=== PATIENT | female | born 1970 | race Caucasian/White ===

== ENCOUNTER → 2023-07-22 09:24 | Outpatient (REF) | payer BC, SELFPAY | LOC: RAD 09:24 | PROVIDERS: ATTENDING PHYSICIAN Obstetrics & Gynecology; FAMILY PHYSICIAN Nurse Practitioner Adult Health | DX: R10.31 Right lower quadrant pain (principal) | CPT/HCPCS: 72193; Q9967 ==

== ENCOUNTER → 2023-08-30 06:42 | Outpatient (REF) | payer BC, SELFPAY ==
[2023-08-30 09:27] LABS: ALT (SGPT) 10 U/L (0-35); AST (SGOT) 24 U/L (14-36); Albumin 4.6 g/dl (3.5-5.0); Alkaline Phosphatase 52 U/L (38-126); Blood Urea Nitrogen 7 mg/dl (7-17); Calcium 10.1 mg/dl (8.4-10.2); Carbon Dioxide 26 mmol/L (22-30); Chloride 106 mmol/L (98-107); Glucose 88 mg/dl (70-99); HDL Cholesterol 62 mg/dl; LDL Cholesterol, Calculated 108 mg/dl; Potassium 5.3 mmol/L (3.5-5.1); Sodium 140 mmol/L (135-145); Total Bilirubin 0.9 mg/dl (0.2-1.3); Total Cholesterol 185 mg/dl (50-199); Total Protein 7.3 g/dl (6.3-8.2); Triglyceride 79 mg/dl (10-149); Very Low Density Lipoprotein 15 mg/dl (0-30); eGFR > 60.00
[2023-08-31 12:35] LABS: TSH Reflex To Free T4 < 0.02 uIU/ml (0.47-4.68)
[2023-08-31 13:02] LABS: Free T4 1.87 ng/dl (0.78-2.19)
== END ==
LOC: REG 06:42
PROVIDERS: ATTENDING PHYSICIAN Nurse Practitioner Adult Health
DX: E78.00 Pure hypercholesterolemia, unspecified (principal); E03.9 Hypothyroidism, unspecified; R63.5 Abnormal weight gain
CPT/HCPCS: 36415; 80053; 80061; 84439; 84443

== ENCOUNTER → 2023-09-05 14:44 | Outpatient (REF) | payer BC, SELFPAY | LOC: HWRAD 14:44 | PROVIDERS: ATTENDING PHYSICIAN Nurse Practitioner Adult Health | DX: R10.12 Left upper quadrant pain (principal) | CPT/HCPCS: 76700 ==

== ENCOUNTER → 2023-09-17 06:44 | Outpatient (REF) | payer BC, SELFPAY | LOC: MRI 06:44 | PROVIDERS: ATTENDING PHYSICIAN Physician Assistant Medical; FAMILY PHYSICIAN Nurse Practitioner Adult Health | DX: M25.551 Pain in right hip (principal); M54.16 Radiculopathy, lumbar region | CPT/HCPCS: 72148; 72195 ==

== ENCOUNTER → 2024-02-01 07:47 | Outpatient (REF) | payer BC, SELFPAY | LOC: RAD 07:47 | PROVIDERS: ATTENDING PHYSICIAN Nurse Practitioner Adult Health | DX: R10.9 Unspecified abdominal pain (principal); R10.12 Left upper quadrant pain | CPT/HCPCS: 74177; Q9967 ==

== ENCOUNTER 2024-03-01 07:58 | Emergency (ER) | payer SELFPAY ==
[2024-03-01 08:01] VITALS: BP 129/71
--- NOTE | 2024-03-01 08:12 | ED.GENMED ---
History of Present Illness
General
Chief Complaint: Head Injury
Source: patient
Exam Limitations: none
Time Seen by Provider: 03/01/24 08:06
History of Present Illness
History of Present Illness:
See MDM
Past History
Past History
ED Past Medical History: Other (Chronic headaches)
ED Past Surgical History: Cardiac (Atrial septal defect)
Social History
Tobacco: Non-smoker
Alcohol: None
Employment: Employed
Phy Exam
Physical Exam
Physical Exam:
See MDM
Course
Orders/Labs/Results
Orders:
Orders
03/01/24 08:11
CT Head W/o Iv Contrast Urgent
Comment:
Reason For Exam: head injury, headache
Ibuprofen [Motrin] 600 mg PO NOW STA
Vital Signs
Initial and Last Documented VS:
Initial Vital Signs
Temp Pulse Resp BP Pulse Ox
97.9 F 76 16 129/71 98
03/01/24 08:01 03/01/24 08:01 03/01/24 08:01 03/01/24 08:01 03/01/24 08:01
Last Documented Vital Signs
Temp Pulse Resp BP Pulse Ox
97.9 F 76 16 129/71 98
03/01/24 08:01 03/01/24 08:01 03/01/24 08:01 03/01/24 08:01 03/01/24 08:01
MDM/Problems Addressed
Differential Diagnosis Includes:
HPI and MDM Narrative:
53-year-old female presenting with minor head injury. Patient was at work and shelving unit fell from a few feet above her head. It did hit the top part of her head. She did not pass out. No vomiting. She has mild headache
Physical exam
General: Well appearing and non-toxic
HEENT: protecting airway. No trauma noted on exam. Pupils equal reactive. EOMI
Neck: No tenderness, supple
CV: No evidence of cyanosis
Resp: No accessory muscle use
Abd: Non-distended
Extremities: No deformities
Neuro: alert
Psych: Normal affect
Skin: Intact
Problems Addressed including Acute and Chronic Conditions affecting care:
1. Head injury
Acuity: acute
Prognosis: stable
Details: Discussed contusion versus very mild concussion. Will obtain CT head
Updates
CT head negative. We discussed the incidental Chiari I malformation and discussed outpatient follow-up with PCP
Differential Diagnosis (but not limited to): Concussion, contusion, migraine
Testing considered: Neck x-ray but no tenderness noted
Drug therapy (if applicable): OTC meds, please see d/c instruction regarding Rx drugs
Amount and/or Complexity of Data Reviewed
Clinical info obtained from: Patient
External data reviewed: N/A
Labs I independently reviewed (but not limited to): N/A
Radiology: The CT scan was personally and independently reviewed. In addition, official CT report reviewed.
Pulse Ox: not hypoxic
EKG independently reviewed: N/A
Director Commercial Sales: N/A
Critical Care: N/A
Risk of Complication:
Social Determinants of health: Good social support
Discussed with other providers: N/A
Escalation of Care includes Admit/Obs: After being observed in the Emergency Department, pt stable for discharge.
Occasional wrong word or 'sound a like' substitutions may have occurred due to the inherent limitations of voice recognition software. Read the chart carefully and recognize, using context, where substitutions have occurred.
*Critical Care Note
Total Time (30-74mins, 75-104mins- exclusive of procedures): Not Applicable
ED Attending Note
-
Portions of this chart may have been created with voice recognition software.� Occasional wrong word or��sound alike� substitutions may have occurred due to the inherent limitations of voice recognition software.
Discharge Plan
Departure
Patient Disposition: Home (Routine Discharge)
Date of Disposition: 03/01/24
Time of Disposition: 08:59
Patient with high blood pressure during this ER visit?: No
Discharge Problem:
Head injury
Instructions: Minor Head Injury (DC)
Prescriptions:
No Action
rizatriptan 10 MG tablet,disintegrating
10 mg PO ONCE PRN (Reason: headache) Qty: 15 0RF
Rx Instructions:
May repeat the dose every 2 hours �2. Maximum dose of 30 mg
diazepam 5 MG tablet
5 mg PO TIDPRN PRN (Reason: spasm) Qty: 15 0RF
verapamil 120 MG tablet extended release
120 mg PO DAILY Qty: 30 0RF
Referrals:
Tisha Osorio CRNP [Family Provider] -
Activity Restrictions/Additional Instructions:
Please return for any worsening symptoms.
You may return at any time if you have further concerns.
Please follow up with your doctor at the first available appointment, preferably this week.
Interventions
Interventions:
*Risk Screen - Suicide Last Done: 03/01/24 08:01
*Neglect/Abuse Screening Last Done: 03/01/24 08:01
*ED COVID-19 Vaccine History Last Done: 03/01/24 08:08
ED- Neurological Assessment Last Done: 03/01/24 08:08
ED-Skin Assessment Last Done: 03/01/24 08:12
Discharge Date and Time
Print Language: NICARAG[place]
[2024-03-01] MEDS: MOTRIN 600 MG PO (08:15)
== END 2024-03-01 09:09 | disposition home or self-care (01) ==
LOC: EMR 07:58
PROVIDERS: EMERGENCY PHYSICIAN Student in an Organized Health Care Education/Training Program; FAMILY PHYSICIAN Nurse Practitioner Adult Health
DX: S09.90XA Unspecified injury of head, initial encounter (principal); R51.9 Headache, unspecified; G93.5 Compression of brain; W20.8XXA Other cause of strike by thrown, projected or falling object, initial encounter; Y93.89 Activity, other specified; Y92.89 Other specified places as the place of occurrence of the external cause; Y99.0 Civilian activity done for income or pay; Q21.10 Atrial septal defect, unspecified; Z88.1 Allergy status to other antibiotic agents
CPT/HCPCS: 99284; 70450

== ENCOUNTER → 2024-03-18 16:59 | Outpatient (REF) | payer BC, SELFPAY | LOC: RAD 16:59 | PROVIDERS: ATTENDING PHYSICIAN Internal Medicine Gastroenterology; FAMILY PHYSICIAN Nurse Practitioner Adult Health | DX: R10.12 Left upper quadrant pain (principal) | CPT/HCPCS: 74018 ==

== ENCOUNTER → 2024-03-19 17:10 | Outpatient (REF) | payer BC, SELFPAY | LOC: WDC 17:10 | PROVIDERS: ATTENDING PHYSICIAN Obstetrics & Gynecology; FAMILY PHYSICIAN Nurse Practitioner Adult Health | DX: Z12.31 Encounter for screening mammogram for malignant neoplasm of breast (principal) | CPT/HCPCS: 77063; 77067 ==

== ENCOUNTER → 2024-06-04 16:19 | Outpatient (REF) | payer BC, SELFPAY | LOC: RAD 16:19 | PROVIDERS: ATTENDING PHYSICIAN Internal Medicine Gastroenterology; FAMILY PHYSICIAN Nurse Practitioner Adult Health | DX: K59.09 Other constipation (principal) | CPT/HCPCS: 74018 ==

== ENCOUNTER → 2024-06-12 17:17 | Outpatient (REF) | payer BC, SELFPAY | LOC: RCS 17:17 | PROVIDERS: FAMILY PHYSICIAN Nurse Practitioner Adult Health | DX: Q21.10 Atrial septal defect, unspecified (principal); I95.89 Other hypotension; I44.0 Atrioventricular block, first degree | CPT/HCPCS: 93306 ==

== ENCOUNTER 2024-07-12 06:26 | Day surgery (SDC) | payer BC, SELFPAY | END 2024-07-12 12:33 | disposition home or self-care (01) | LOC: GI 06:26 | PROVIDERS: ATTENDING PHYSICIAN Internal Medicine Gastroenterology | DX: Z12.11 Encounter for screening for malignant neoplasm of colon (principal); D12.1 Benign neoplasm of appendix; D12.2 Benign neoplasm of ascending colon; D12.3 Benign neoplasm of transverse colon; Q43.8 Other specified congenital malformations of intestine | CPT/HCPCS: 45385; 88305 ==

== ENCOUNTER → 2025-02-19 13:05 | Outpatient (REF) | payer BC, SELFPAY | LOC: RAD 13:05 | PROVIDERS: ATTENDING PHYSICIAN Physician Assistant; FAMILY PHYSICIAN Nurse Practitioner Adult Health | DX: M53.3 Sacrococcygeal disorders, not elsewhere classified (principal); Z91.81 History of falling | CPT/HCPCS: 72220 ==

== ENCOUNTER → 2025-04-01 15:56 | Outpatient (REF) | payer BC, SELFPAY | LOC: WDC 15:56 | PROVIDERS: ATTENDING PHYSICIAN Obstetrics & Gynecology; FAMILY PHYSICIAN Nurse Practitioner Adult Health | DX: Z12.31 Encounter for screening mammogram for malignant neoplasm of breast (principal) | CPT/HCPCS: 77063; 77067 ==